=== PATIENT | female | born 1980 | race Hispanic/Latino ===

== ENCOUNTER 2021-03-17 11:38 | Emergency (ER) | payer OTHER ==
[~2021-03-17] VITALS: Ht 154.9 cm; Wt 74.8 kg
[2021-03-17 11:43] VITALS: BP 108/66
[2021-03-17] MEDS ORDERED: D-ME1POW16 PO (12:50)
[2021-03-17] MEDS ORDERED: LEVO500T90 PO (12:50)
[2021-03-17] MEDS ORDERED: ALBU8.5H8 IH (12:50)
[2021-03-17] MEDS ORDERED: ALBUTEROL INHALER 90MCG/INH IH PRN (13:00)
[2021-03-17] MEDS ORDERED: ALBUTEROL INHALER 90MCG/INH IH ONE (13:21)
[2021-03-17] MEDS ORDERED: LEVOFLOXACIN 500 MG TABLET ONE (13:21)
[2021-03-17] MEDS ORDERED: AZITHROMYCIN 250 MG TABLET PO ONE ×2 (13:22→14:00)
[2021-03-17] MEDS ORDERED: ACETAMINOPHEN WITH CODEINE 1 TAB TAB ONE (13:22)
[2021-03-17] MEDS ORDERED: ACETAMINOPHEN WITH CODEINE 1 TAB TAB PO ONE (14:00)
[2021-03-17] MEDS ORDERED: LEVOFLOXACIN 500 MG TABLET PO SCH (14:00)
== END 2021-03-17 13:27 | disposition home or self-care (01) ==
LOC: EDH 11:38
DX: U07.1 COVID-19 (principal); J12.82 Pneumonia due to coronavirus disease 2019; Z79.899 Other long term (current) drug therapy
CPT/HCPCS: 71045; 87635; 87804 ×2; 99284; C9803